=== PATIENT | male | born 1940 | race Caucasian/White ===

== ENCOUNTER 2016-06-19 07:10 | Day surgery (SDC) | payer MEDICARE, BC ==
[~2016-06-19 07:10] MED LIST: Dextrose 5%-0.45% NaCl 1,000 ML IV SCH; Midazolam 1 MG/ML 2 ML SDV ONE; Sodium Chloride 0.9% 10 ML Syringe FLUSH PRN; fentaNYL 100 MCG/2 ML SDV ONE
[2016-06-19] MEDS ORDERED: Midazolam 1 MG/ML 2 ML SDV IV ONE ×4 (08:48→15:22)
[2016-06-19] MEDS ORDERED: fentaNYL 100 MCG/2 ML SDV IV ONE ×3 (08:48→15:22)
--- NOTE | 2016-06-19 09:47 | OR ---
{null, DATE: 06/19/2016 PROCEDURE: Total colonoscopy, NBI, and multiple pinch biopsies. INSTRUMENT USED: PCF-H180AL Olympus video colonoscope. PREMEDICATIONS: Fentanyl 100 mcg intravenous, Versed 2 mg intravenous. The procedure was done under pulse oximetry, BP recording, and teletypesetter monitor. INDICATION: The patient with known ulcerative colitis having protracted diarrhea and rectal bleeding, not responsive to medical measures. Colonoscopic examination is done for detection of any polypoid lesions and removal, biopsies to be obtained for evidence of colitis as well as CMV infection, endoscopic hemostasis therapy if needed. Initial rectal exam was unremarkable. Rigid anoscopy showed diffuse erythema of the rectal mucosa. DESCRIPTION OF PROCEDURE: The colonoscope was passed with ease. Photographs were taken of the rectum showing features of ulcerative colitis, NBI views were obtained, multiple pinch biopsies were obtained and sent for histopathology. Numerous scattered diverticula were noted in the distal left colon along with deformity. The scope was passed with ease up to the ileocecal area, photographs were taken of the sigmoid, descending colon, as well as cecum, no active bleeding was noted from any of the visualized areas at the commencement of the examination. No stricture. No vascular ectasia. The erythematous mucosa with friability, contact bleeding, and ulcerations were noted in the entire visualized colon. No stricture, no vascular ectasia, no polyp or tumor mass identified. Probing the proximal sides of folds and flexures, using adequate distention and clearing up the stool material, withdrawal of the scope was made. No bleeding was noted from any of the visualized areas at the completion of examination. IMPRESSION: 1. [place]app[place] ulcerative colitis. 2. Colonic diverticulosis. The patient tolerated the procedure well. [facility] /[id number] }
[2016-06-19 10:43] VITALS: BP 132/64
== END 2016-06-19 10:41 | disposition home or self-care (01) ==
LOC: DL.ENDO 07:10
PROVIDERS: ATTEND Internal Medicine Gastroenterology
DX: K52.89 Other specified noninfective gastroenteritis and colitis (principal); K57.30 Diverticulosis of large intestine without perforation or abscess without bleeding; I10 Essential (primary) hypertension; E78.00 Pure hypercholesterolemia, unspecified; Z88.0 Allergy status to penicillin
CPT/HCPCS: 45380; 88305; 88342; J2250; J3010; J7042

== ENCOUNTER 2017-07-15 05:44 | Day surgery (SDC) | payer MEDICARE, BC ==
[2017-07-15] MEDS ORDERED: Midazolam 1 MG/ML 2 ML SDV IV ONE ×5 (05:45→06:49)
[2017-07-15] MEDS ORDERED: fentaNYL 100 MCG/2 ML SDV IV ONE ×3 (05:45→06:44)
[2017-07-15] MEDS ORDERED: Sodium Chloride 0.9% 10 ML Syringe FLUSH PRN (06:00)
[2017-07-15] MEDS ORDERED: Dextrose 5%-0.45% NaCl 1,000 ML IV SCH (06:00)
[2017-07-15] MEDS ORDERED: fentaNYL 100 MCG/2 ML SDV ONE (06:14)
[2017-07-15] MEDS ORDERED: Midazolam 1 MG/ML 2 ML SDV ONE (06:14)
--- NOTE | 2017-07-15 09:06 | OR ---
DATE: 07/15/2017 PROCEDURES: Total colonoscopy, narrow-band imaging, magnification views, and multiple pinch biopsies. INSTRUMENT USED: CF-H180 AL Olympus video colonoscope. PREMEDICATIONS: Fentanyl 100 mcg intravenous, Versed 3 mg intravenous. Nasal O2 cannula. The procedure was done under pulse oximetry, BP recording, and office manager receptionist. INDICATION: The patient with known ulcerative colitis, on therapy. Colonoscopic examination is done for verification of mucosal healing for any modification in therapy. Polypectomy if needed. Endoscopic hemostasis therapy if needed. DESCRIPTION OF PROCEDURE: Initial rectal exam was unremarkable. Rigid anoscopy showed a mild patchy erythema of the rectum. The colonoscope was passed with ease. Numerous scattered diverticula were noted in the distal left colon along with deformity. Photograph was taken of the rectum. The scope was passed with ease up to the ileocecal area. Photographs were taken of the normal-appearing cecum, identified by landmarks of appendiceal orifice and double-bulged ileocecal folds. No bleeding was noted from any of the visualized areas at the commencement of the examination. The bowel preparation was found to be adequate. No stricture. No vascular ectasia. No large isolated ulcerations seen. Probing the proximal sides of folds and flexures, using adequate distention and clearing up the stool material, withdrawal of the scope was made. Multiple pinch biopsies were taken of the normal-appearing mucosa of the mid transverse colon and proximal descending colon. Biopsies were also obtained from the distal descending colon and rectosigmoid area. Mild patchy erythema noted. No bleeding was noted from any of the visualized areas at the completion of examination. IMPRESSION: 1. Diverticulosis. 2. Ulcerative colitis. The patient tolerated the procedure well. [facility] /[id number]
[2017-07-15 11:13] VITALS: BP 138/66
== END 2017-07-15 08:59 | disposition home or self-care (01) ==
LOC: DL.ENDO 05:44
PROVIDERS: ATTEND Internal Medicine Gastroenterology
DX: K51.90 Ulcerative colitis, unspecified, without complications (principal); K57.30 Diverticulosis of large intestine without perforation or abscess without bleeding; K62.89 Other specified diseases of anus and rectum; I10 Essential (primary) hypertension; E78.00 Pure hypercholesterolemia, unspecified; F41.1 Generalized anxiety disorder
CPT/HCPCS: 45380; J2250; J3010; J7042

== ENCOUNTER 2019-09-29 17:34 | Inpatient (IN) | payer MEDICARE, BC ==
[2019-09-29] MEDS ORDERED: Ondansetron 4 MG Tab.DIS PO PRN (18:17)
[2019-09-29] MEDS ORDERED: Acetaminophen/oxyCODONE 325-5 MG Tab PO PRN (18:17)
[2019-09-29] MEDS ORDERED: Acetaminophen 325 MG Tab PO PRN (18:17)
[2019-09-29] MEDS ORDERED: Potassium Chloride 10 MEQ Tab.ER PO ONE (18:23)
[2019-09-29] MEDS: Sodium Chloride 0.9% 1,000 ML IV SCH (20:13)
[2019-09-29] MEDS: metroNIDAZOLE/Normal Saline 500 MG in Premix Bag 100 BAG IV SCH (20:16)
[2019-09-29] MEDS: Potassium Chloride 10 MEQ Tab.ER PO SCH (20:23)
[2019-09-29] MEDS: Docusate Sodium 100 MG Cap PO PRN (20:24)
[2019-09-29] MEDS: Pantoprazole 40 MG Vial IVPUSH SCH (20:26)
[2019-09-29] MEDS ORDERED: Ciprofloxacin in D5W 200 ML IV ONE (21:45)
[2019-09-30] MEDS: metroNIDAZOLE/Normal Saline 500 MG in Premix Bag 100 BAG IV SCH ×3 (03:28→18:04)
[2019-09-30] MEDS: Sodium Chloride 0.9% 1,000 ML IV SCH ×2 (06:12→16:49)
[2019-09-30] MEDS: Pantoprazole 40 MG Vial IVPUSH SCH ×2 (06:12→18:04)
[2019-09-30 06:26] LABS: ANION GAP 13.4 mEq/L (7-13); CHLORIDE,CL 105 mmol/L (98-107); SODIUM,NA 143 mmol/L (136-145)
[2019-09-30] MEDS: Ciprofloxacin in D5W 400 MG in Premix Bag 1 BAG IV SCH ×4 (08:40→20:31)
[2019-09-30] MEDS: Potassium Chloride 10 MEQ Tab.ER PO SCH ×2 (08:41→20:28)
[2019-09-30] MEDS: Folic Acid 1 MG Tab PO SCH (08:41)
[2019-09-30] MEDS: Atenolol 25 MG Tab PO SCH (08:41)
[2019-09-30] MEDS: Docusate Sodium 100 MG Cap PO PRN (08:41)
[2019-09-30] MEDS: Chlorthalidone 25 MG Tab PO SCH (08:41)
[2019-09-30] MEDS: Lutein/Minerals/Vit A,C & E Tab PO SCH (08:41)
[2019-09-30] MEDS: Enoxaparin 40 MG/0.4 ML Syringe SUBCUT SCH (08:42)
[2019-09-30] MEDS ORDERED: Potassium Chloride 10 MEQ Tab.ER PO ONE (08:55)
--- NOTE | 2019-09-30 09:48 | PN ---
DATE: 09/30/2019 SUBJECTIVE: The patient is doing well. He had a small bowel movement this morning and the left lower quadrant pain is actually improving. The patient denies any chest pain, fever, chills, shortness of breath, nor any other significant complaints. LABORATORY DATA: Lab workup this morning, CBC; WBC is 8.4, hemoglobin is 14.7, hematocrit is 44.7, platelets are 193. Chem-6; potassium is 3.4, anion gap is 13.4, glucose is 72, calcium 7.9. The rest of the panel unremarkable. OBJECTIVE: Vital Signs: Blood pressure is 126/60, pulse of 57, respirations 16, temperature of 98.2, saturation is 96. Heart: Regular rate and rhythm. Normal S1 and S2. No gallops. No rubs. Lungs: Equal bilaterally. No crackles. No wheezing. Abdomen: Soft, nontender. Bowel sounds normoactive. Extremities: Negative for any pedal edema. No calf tenderness. PLAN: We will give him potassium 40 mEq p.o. x1 today because potassium is still slightly low and I am going to advance his diet to clear liquids. [facility] /[id number]
--- NOTE | 2019-09-30 11:07 | HP ---
CHIEF COMPLAINT: Left lower quadrant abdominal pain. HISTORY OF PRESENT ILLNESS: The patient is a 79-year-old gentleman with past medical history of ulcerative colitis, hypertension, dyslipidemia, colonic diverticulosis, who was admitted directly from [facility] because the patient has been complaining of constipation for the last several days and about 2 days ago started having left lower quadrant pain. The patient was seen by Dr. Babin and he had some lab workup done, including a CAT scan of the abdomen and pelvis, which showed acute diverticulitis. The patient's CRP was also elevated to 11.9. Because of this, he was then admitted for further management. PAST MEDICAL HISTORY: As in HPI. FAMILY HISTORY: Noncontributory. SOCIAL HISTORY: The patient is a retired pharmacist. He is a nonsmoker, nonalcohol drinker. HOME MEDICATIONS: Methotrexate, Lipitor, atenolol, Citrucel, folic acid, chlorthalidone. ALLERGIES: No known drug allergies. REVIEW OF SYSTEMS: The patient denies any fever or chills, chest pain, shortness of breath, orthopnea, PND, dysuria. PHYSICAL EXAMINATION: General: Very pleasant gentleman. He is alert and oriented. He is ambulatory, not in any acute distress. Vital Signs: Blood pressure is 118/60, pulse of 56, respirations of 18, weight is 187 pounds. HEENT: Normocephalic. There are pink palpebral conjunctivae. Sclerae anicteric. Neck: No JVD. No lymphadenopathy. Heart: Regular rate and rhythm. Normal S1 and S2. No gallops. No rubs. Lungs: Equal bilaterally. No crackles. No wheezing. Abdomen: Slightly protuberant but soft. There is mild direct tenderness on the left lower quadrant. No rebound. Bowel sounds hypoactive. Extremities: Negative for any pedal edema. No calf tenderness. LABORATORY WORKUP: Done at the [facility]. CBC: WBC is 11.1, hemoglobin is 16.5, hematocrit is 48, platelets are 203. Urinalysis is remarkable for ketones of 50 mg/dL. CRP is 11.2. Comp panel: Potassium is 3.4, bilirubin of 1.2, the rest of the panel unremarkable. CAT scan of the abdomen and pelvis showed acute sigmoid diverticulitis. ADMITTING DIAGNOSES: 1. Acute sigmoid diverticulitis. 2. Mild hypokalemia. 3. Hypertension. 4. History of ulcerative colitis. 5. Dyslipidemia. TREATMENT PLAN: The patient is going to be admitted to acute care. He will be started on IV antibiotics with Flagyl and Cipro. He will be on DVT prophylaxis and he will be resumed on his selected home medication, and the rest of the management as necessary, and the patient is a full code. [facility] /[id number]
[2019-10-01] MEDS: metroNIDAZOLE/Normal Saline 500 MG in Premix Bag 100 BAG IV SCH ×2 (02:10→10:39)
[2019-10-01] MEDS: Sodium Chloride 0.9% 1,000 ML IV SCH (05:11)
[2019-10-01] MEDS: Pantoprazole 40 MG Vial IVPUSH SCH (06:09)
[2019-10-01 07:21] VITALS: BP 146/97; PULSE 83
[2019-10-01] MEDS: Enoxaparin 40 MG/0.4 ML Syringe SUBCUT SCH (08:06)
[2019-10-01] MEDS: Folic Acid 1 MG Tab PO SCH (08:07)
[2019-10-01] MEDS: Atenolol 25 MG Tab PO SCH (08:07)
[2019-10-01] MEDS: Lutein/Minerals/Vit A,C & E Tab PO SCH (08:07)
[2019-10-01] MEDS: Chlorthalidone 25 MG Tab PO SCH (08:07)
[2019-10-01] MEDS: Potassium Chloride 10 MEQ Tab.ER PO SCH (08:07)
[2019-10-01] MEDS ORDERED: Atenolol 25 MG Tab PO ONE (08:30)
[2019-10-01] MEDS: Ciprofloxacin in D5W 400 MG in Premix Bag 1 BAG IV SCH ×2 (09:12)
--- NOTE | 2019-10-01 12:27 | DISCH ---
FINAL DIAGNOSES: 1. Acute sigmoid diverticulitis. 2. Mild hypokalemia. 3. Hypertension. 4. History of ulcerative colitis. 5. Dyslipidemia. BRIEF HISTORY OF PRESENT ILLNESS: Please see H and P, pertinent lab, x-ray, and other tests on admission, see H and P. HOSPITAL COURSE: The patient was admitted to Acute Care. He was started empirically on IV antibiotics with Flagyl and Cipro. He was placed on DVT prophylaxis and potassium was also repleted orally. The patient did well with the above regimen with improvement of his left lower quadrant pain and his diet was slowly advanced which he tolerated well. His blood pressure was noted to be slightly elevated during the hospitalization and atenolol was increased to 50 mg a day. The rest of the hospital course was unremarkable and he was subsequently discharged and condition on discharge is improved. The patient is going to follow up with Dr. Babin in 1 week. [facility] /[id number]
--- NOTE | 2019-10-01 12:51 | PN ---
DATE: 10/01/2019 SUBJECTIVE: The patient continues to do well. He had 3 bowel movements yesterday, and he denies any worsening of the abdominal pain and denies any fever, chills, chest pain, shortness of breath, nor any other complaint. Appetite has been good, and he is tolerating the regular diet. OBJECTIVE: Vital Signs: Blood pressure is 146/97, pulse 83, respirations of 18, temperature of 97.2, and saturation is 97. Heart: Regular rate and rhythm. Normal S1 and S2. No gallops. No rubs. Lungs: Clear. No crackles, no wheezing. Abdomen: Moderately obese but soft and nontender. Bowel sounds are positive. Extremities: Negative for any pedal edema. No calf tenderness. PLAN: We will increase his atenolol to 50 mg a day because of the blood pressure running slightly elevated. Otherwise, we will continue the rest of his management, and we will discharge the patient home today, and he is going to follow up with Dr. Babin in 1 week for a recheck. [facility] /[id number]
[2019-10-02] MEDS ORDERED: Atenolol 50 MG Tab PO SCH (09:00)
== END 2019-10-01 12:30 | disposition home or self-care (01) | DRG 392 ==
LOC: UNDOADMIN 17:34 → DL.MS 17:34
PROVIDERS: ADMIT Internal Medicine; ATTEND Internal Medicine
DX: K57.32 Diverticulitis of large intestine without perforation or abscess without bleeding (principal); E87.6 Hypokalemia; I10 Essential (primary) hypertension; E78.5 Hyperlipidemia, unspecified
CPT/HCPCS: 36415; 80048; 85025; A9270-GY; C9113; J0744; J3490; J7030

== ENCOUNTER 2021-07-22 06:27 | Day surgery (SDC) | payer MEDICARE, BC ==
[~2021-07-22 06:27] MED LIST changes: +Sodium Chloride 0.9% 10 ML Syringe FLUSH SCH
[2021-07-22] MEDS ORDERED: Midazolam 1 MG/ML 2 ML SDV IV ONE ×4 (06:28→07:53)
[2021-07-22] MEDS ORDERED: fentaNYL 100 MCG/2 ML SDV IV ONE ×3 (06:28→07:45)
[2021-07-22 10:14] VITALS: BP 119/63; PULSE 44
== END 2021-07-22 10:08 | disposition home or self-care (01) ==
LOC: DL.ENDO 06:27
PROVIDERS: ATTEND Internal Medicine Gastroenterology
DX: K57.30 Diverticulosis of large intestine without perforation or abscess without bleeding (principal); K63.89 Other specified diseases of intestine; K51.90 Ulcerative colitis, unspecified, without complications; E78.00 Pure hypercholesterolemia, unspecified; I10 Essential (primary) hypertension; M47.812 Spondylosis without myelopathy or radiculopathy, cervical region; K52.9 Noninfective gastroenteritis and colitis, unspecified; F41.1 Generalized anxiety disorder; N40.0 Benign prostatic hyperplasia without lower urinary tract symptoms; Z86.16 Personal history of COVID-19; Z86.39 Personal history of other endocrine, nutritional and metabolic disease; Z98.890 Other specified postprocedural states; Z87.39 Personal history of other diseases of the musculoskeletal system and connective tissue; Z01.812 Encounter for preprocedural laboratory examination; Z20.822 Contact with and (suspected) exposure to COVID-19
CPT/HCPCS: 88305; J2250; J3010; J7042; U0002

== ENCOUNTER 2023-07-31 12:10 | Emergency (ER) | payer MEDICARE, BC ==
[2023-07-31 15:55] VITALS: BP 118/79; PULSE 60
== END 2023-07-31 17:40 | disposition home or self-care (01) ==
LOC: DL.ED 12:10
DX: Z53.21 Procedure and treatment not carried out due to patient leaving prior to being seen by health care provider (principal)

== ENCOUNTER 2023-12-23 08:00 | Emergency (ER) | payer MEDICARE, BC ==
[2023-12-23] MEDS ORDERED: Sodium Chloride 0.9% 10 ML Syringe FLUSH PRN (08:38)
[2023-12-23 08:53] LABS: BASOPHILS PERCENT AUTO 0.2 % (0.0-1.0); EOSINOPHILS PERCENT AUTO 4.5 % (1.0-3.0); HEMATOCRIT 51.4 % (40.0-54.0); HEMOGLOBIN 17.3 g/dL (14.0-18.0); LYMPHOCYTES PERCENT AUTO 14.6 % (20.5-50.1); MEAN CORPUSCULAR HEMOGLOBIN 32.2 pg (27.0-34.0); MEAN CORPUSCULAR HGB CONC 33.7 g/dL (33.0-35.0); MEAN CORPUSCULAR VOLUME 95.7 fL (80-100); MONOCYTES PERCENT AUTO 10.3 % (2-8); NEUTROPHILS PERCENT AUTO 70.4 % (42.2-75.2); PLATELET COUNT,PLT 217 10^3/uL (150-450); RED BLOOD CELL COUNT 5.37 10^6/uL (4.6-6.2); WHITE BLOOD CELL COUNT,WBC 8.4 10^3/uL (5.0-10.0)
[2023-12-23 08:58] LABS: APPEARANCE,URINE CLEAR (CLEAR); BILIRUBIN,URINE NEGATIVE (NEGATIVE); COLOR,URINE YELLOW (YELLOW); GLUCOSE,URINE NEGATIVE (NEGATIVE); KETONES,URINE NEGATIVE (NEGATIVE); LEUKOCYTE ESTERASE,URINE NEGATIVE (NEGATIVE); NITRITE,URINE NEGATIVE (NEGATIVE); OCCULT BLOOD,URINE NEGATIVE (NEGATIVE); PROTEIN,URINE NEGATIVE (NEGATIVE); UROBILINOGEN,URINE 0.2 mg/dL (0.2-1.0)
[2023-12-23 09:16] LABS: LACTIC ACID 0.8 mmol/L (0.4-2.0)
[2023-12-23 09:17] LABS: ALBUMIN 3.8 g/dL (3.4-5.0); ANION GAP 10.8 mEq/L (7-13); BILIRUBIN TOTAL 0.9 mg/dL (0.2-1.0); CALCIUM 9.6 mg/dL (8.5-10.1); EST CRCL DRUG DOSING (CG) 51.39 mL/min; MAGNESIUM 2.3 mg/dL (1.8-2.4); POTASSIUM,K 3.8 mmol/L (3.5-5.1); PROTEIN TOTAL,TP 7.6 g/dL (6.4-8.2)
[2023-12-23 09:23] LABS: PROTHROMBIN TIME 10.8 SEC (9.0-12.0); PTT,PARTIAL THROMBOPLSTIN TIME 26.5 SEC (22.0-34.0)
[2023-12-23 11:00] VITALS: BP 122/84; PULSE 85
== END 2023-12-23 10:59 | disposition home or self-care (01) ==
LOC: DL.ED 08:00
DX: K62.5 Hemorrhage of anus and rectum (principal); I10 Essential (primary) hypertension; E78.00 Pure hypercholesterolemia, unspecified; Z79.899 Other long term (current) drug therapy
CPT/HCPCS: 36415; 80053; 81003; 82272; 83605; 83735; 84484; 85014; 85025; 85610; 85730; 99283

== ENCOUNTER 2024-01-20 06:37 | Day surgery (SDC) | payer MEDICARE, BC ==
[~2024-01-20 06:37] MED LIST changes: -Dextrose 5%-0.45% NaCl 1,000 ML IV SCH; +Midazolam 1 MG/ML 2 ML SDV IV ONE; -Sodium Chloride 0.9% 10 ML Syringe FLUSH PRN; -Sodium Chloride 0.9% 10 ML Syringe FLUSH SCH; +fentaNYL 100 MCG/2 ML SDV IV ONE
[2024-01-20] MEDS: Dextrose 5%-0.45% NaCl 1,000 ML IV SCH (07:11)
[2024-01-20] MEDS: fentaNYL 100 MCG/2 ML SDV IV ONE ×2 (08:05→08:13)
[2024-01-20] MEDS: Midazolam 1 MG/ML 2 ML SDV IV ONE ×3 (08:06→08:16)
[2024-01-20 12:03] VITALS: BP 139/70; PULSE 60
== END 2024-01-20 09:50 | disposition home or self-care (01) ==
LOC: DL.ENDO 06:37
PROVIDERS: ATTEND Internal Medicine Gastroenterology
DX: K51.211 Ulcerative (chronic) proctitis with rectal bleeding (principal); K57.31 Diverticulosis of large intestine without perforation or abscess with bleeding; I10 Essential (primary) hypertension; E78.00 Pure hypercholesterolemia, unspecified
CPT/HCPCS: 88305; J2250; J3010; J7799